=== PATIENT | female | born 1945 | race Caucasian/White ===

== ENCOUNTER 2018-12-24 07:01 | Inpatient (IN) ==
[2018-12-24] MEDS ORDERED: ZOFRAN IV ONE (07:24)
[2018-12-24] MEDS ORDERED: MORPHINE IV ONE (07:24)
[2018-12-24] MEDS ORDERED: NS 1,000 ML IV ONE ×2 (07:24→11:11)
--- NOTE | 2018-12-24 07:32 | PROVIDER DOCUMENTATION ---
HPI-Abdominal Pain/GI Problem - General Chief Complaint: Abdominal Pain Stated Complaint: "BOWEL BLOCKAGE" Time Seen by Provider: 12/24/18 07:17 Source: patient (began with severe, crampy diffuse abd pain, N/V about midnight. Nothing makes better nor worse. Says is similar to prev SBO. Last one was in Mar. Sees Dr Naranjo, has been told is due to scar tissue. Says she does have NL BM, is us just diarrhea, but has been clearer, less solids last few days.) Allergies/Adverse Reactions: Patient Allergies Allergy/AdvReac Type Severity Reaction Status Date / Time aspirin Allergy SHORTNESS Verified 12/24/18 07:42 OF BREATH hydrocodone Allergy HIVES Verified 12/24/18 07:42 Iodinated Contrast Media Allergy ANAPHYLAXIS Verified 12/24/18 07:42 [IV Dye] ketorolac tromethamine * Allergy HIVES Verified 12/24/18 07:42 [From Toradol] methocarbamol [From Robaxin] Allergy SHORTNESS Verified 12/24/18 07:42 OF BREATH oxycodone HCl * Allergy HIVES Verified 12/24/18 07:42 [From Percocet] promethazine [From Phenergan] Allergy Unknown Verified 12/24/18 07:42 Home Medications: Home Medication List Medication Instructions Recorded Confirmed Last Taken Type LISINOpril [Prinivil] 20 mg PO BID 06/14/16 12/24/18 06/14/16 05:30 History Levothyroxine [Synthroid] 75 mg PO DAILY@0700 06/14/16 12/24/18 06/14/16 05:30 History Metoprolol Tartrate 50 mg PO BID 06/14/16 12/24/18 06/14/16 05:30 History Amlodipine [Norvasc] 2.5 mg PO DAILY 03/06/18 12/24/18 Unknown History Furosemide [Lasix] 40 mg PO DAILY 03/06/18 12/24/18 Unknown History Potassium Chloride 10 meq PO DAILY 03/06/18 12/24/18 Unknown History Tramadol [Ultram] 50 mg PO BID 04/15/18 12/24/18 Unknown History Esomeprazole [Nexium] 40 mg PO DAILY 12/24/18 12/24/18 Unknown History Review of Systems - Adult - REVIEW OF SYSTEMS - ADULT Constitutional: reports: no symptoms reported Eyes: reports: no symptoms reported Ears, Nose, Mouth & Throat: reports: no symptoms reported Cardiovascular: reports: no symptoms reported Respiratory: reports: no symptoms reported Gastrointestinal: reports: see HPI Genitourinary: reports: no symptoms reported Musculoskeletal: reports: no symptoms reported Integumentary: reports: no symptoms reported Neurological: reports: no symptoms reported Psychiatric: reports: no symptoms reported Endocrine: reports: no symptoms reported Hematologic/Lymphatic: reports: no symptoms reported Allergic/Immunologic: reports: no symptoms reported Past History - Adult - PAST MEDICAL HISTORY-ADULT Review of Records: reports: Medications Reviewed Major Childhood Illnesses: reports: denies history Cardiovascular: reports: HTN Respiratory: reports: denies history Gastrointestinal: reports: diverticulosis, GERD, obstruction Obstetrical/Gynecological: reports: denies history Genitourinary: reports: denies history Musculoskeletal: reports: fibromyalgia Neurological: reports: denies history Endocrine/Immune: reports: thyroid disorder Other Conditions: reports: other cancer (skin) - PRIOR SURGERIES/PROCEDURES Surgical/Procedure History: reports: cholecystectomy, hysterectomy, hernia repair, breast (reduction) - IMMUNIZATION STATUS Childhood Immunizations: See Nurse Assessment Flu Vaccine: See Nurse Assessment - FAMILY HISTORY Family History: reviewed, not pertinent Physical Exam-General - PHYSICAL EXAM-ADULT Initial Vital Signs Reviewed: Yes - CONSTITUTIONAL General Appearance: appears well, alert, moderate distress - EYES Eyes: PERRL/EOMI, pink conjunctivae - HEAD, EARS, NOSE, MOUTH & THROAT HENMT: normocephalic/atraumatic, moist mucous membranes, normal ENT inspection, pharynx normal - NECK Neck: full range of motion, supple, normal inspection - RESPIRATORY Respiratory: chest non-tender, lungs clear, normal breath sounds, no pleuratic chest pain, no respiratory distress, decreased breath sounds - CARDIOVASCULAR Cardiovascular: normal peripheral pulses, regular rate, rhythm, no edema - GASTROINTESTINAL (ABDOMEN) Abdominal Exam: abnormal bowel sounds (decreased), distended (mod), tenderness (diffuse, moderate) - MUSCULOSKELETAL Back Exam: normal inspection, no CVA tenderness, no vertebral tenderness Extremity: normal range of motion, non-tender, normal inspection, no pedal edema - SKIN Integumentary: normal color, normal turgor, warm/dry - NEUROLOGIC Neurologic: imcu nurse II-XII nml as tested, grossly normal, no motor/sensory deficits - PSYCHIATRIC Psych/Mental Status: normal mood/affect, normal thought content, normal thought process, oriented x 3 Progress - PLAN OF CARE/RESULTS Progress/Plan/Lab Results: Vital Signs - 8 hr 12/24/18 07:05 Temperature 97.3 F L Pulse Rate 97 H Respiratory Rate 18 Blood Pressure 122/85 O2 Sat by Pulse Oximetry 99 Orders Category Date Time Status NG/OG/Feeding Tube Insertion ORDERED Care 12/24/18 07:25 Ordered CBC WITH DIFF [HEME] Stat Lab 12/24/18 07:24 Uncollected COMPREHENSIVE METABOLIC PANEL [CHEM] Stat Lab 12/24/18 07:24 Uncollected 0.9% Sodium Chloride Inj [Ns] 1,000 ml Med 12/24/18 07:24 Ordered IV 200 mls/hr Morphine Med 12/24/18 07:24 Once 4 mg IV NOW ONE Ondansetron [Zofran] Med 12/24/18 07:24 Once 8 mg IV NOW ONE Result Diagrams: 12/24/18 07:20 12/24/18 07:20 - CONSULTS/PCP/HOSPITALIST Notification #1 *Consult/PCP/Hospitalist*: Zaldivar Time Discussed: 09:15 Consult Disposition: Admit #2 Consult: Figh Time Discussed: 07:30 Reason/Comments: please get CT Departure - Departure Date of Disposition Decision: 12/24/18 Time of Disposition Decision: 09:15 DIAGNOSIS: Small bowel obstruction Disposition: ADMITTED INPATIENT 09 Certified Medical Emergency: Emergent Condition: Stable Referrals and Follow-Ups: Paola Omalley CRNP [Primary Care Provider] - - Critical Care Note This patient required my direct & personal management of CC.: No Attestation - Physician/ KEITH Attestation Patient care was provided by Advanced Practice Provider:: No The physician spent face to face time with patient:: Yes Advanced Practice Provider documentation review:: Supervising physician onsite and consulted in the evaluation and care of this patient. The physician did have a face to face encounter with the patient.
[2018-12-24] MEDS ORDERED: VALIUM IV ONE ×2 (08:02→09:13)
[2018-12-24 08:12] LABS: BASO# 0.04 X1000 (0.0-0.2); BASO% 0.2 % (0.0-0.8); EOS# 0.11 X1000 (0.0-0.7); EOS% 0.5 % (0.0-10.0); HEMATOCRIT 47.3 % (37.0-47.0); HEMOGLOBIN 16.3 g/dL (12.0-16.0); IMM GRAN# 0.08 X1000 (0.0-0.04); IMM GRAN% 0.4 % (0.0-0.5); LYMPH# 1.85 X1000 (1.2-3.4); LYMPH% 8.8 % (20.5-51.1); MCH 28.6 PG (27-31); MCHC 34.5 g/dL (33-37); MONO# 1.49 X1000 (0.11-0.59); MONO% 7.1 % (1.7-9.3); MPV 9.9 FL (7.4-10.4); NEUT# 17.37 X1000 (1.4-6.5); PLT 492 X1000 (130-400); RDW 14.8 % (11.5-14.5); WBC 20.94 X1000 (4.8-10.8)
[2018-12-24 08:24] LABS: BANDS 10 % (0-1); LYMPHS 4 % (21-51); MONO 4 % (1-9); SEGS 82 % (42-75)
[2018-12-24 08:42] LABS: ALB/GLOB RATIO 1.3; ALBUMIN 5.5 g/dL (3.5-5.0); CREATININE 1.7 mg/dL (0.5-0.9); POTASSIUM 3.6 mmol/L (3.5-5.1); TOTAL BILIRUBIN 0.63 mg/dL (0.20-1.00); TOTAL PROTEIN 9.7 g/dL (6.3-8.3)
--- NOTE | 2018-12-24 10:49 | Diag Imaging Result Doc PS360 ---
EXAM: CT ABDOMEN/PELVIS W/O CONTRAST INDICATION: abd pain, and GFR too low TECHNIQUE: This exam was performed using automated exposure control, adjustment of mA or kV according to patient size, and/or use of iterative reconstruction technique. COMPARISON: 10/22/2018 FINDINGS: There has been a prior cholecystectomy. The liver, spleen, pancreas, adrenal glands, and kidneys are unremarkable. The urinary bladder is completely nondistended. There has been a prior hysterectomy. There are stable bilateral small inguinal hernias containing only fat. There is uncomplicated diverticulosis coli. There are multiple markedly distended loops of small bowel that are fluid-filled. There are also several air-fluid levels. The distal small bowel is collapsed. This is consistent with a high-grade small bowel obstruction. The transition point is probably in the right lower quadrant anteriorly (see image 124 series 3). The stomach is moderately distended. There is an NG tube with the tip in the lumen of the stomach in the expected position. No free abdominal gas is identified. There is surgical mesh and coils at the ventral abdominal wall suggesting prior hernia repair. There is no evidence of acute osseous abnormality. IMPRESSION: 1.High-grade small bowel obstruction as described. 2.Other incidental/nonacute findings detailed above. Electronically signed by Sukhwinder Reddy 12/24/2018 10:47 AM
[2018-12-24] MEDS ORDERED: ZOFRAN IV PRN (11:11)
[2018-12-24] MEDS ORDERED: ROCEPHIN 1 GM in NS 50 ML IV SCH (12:00)
--- NOTE | 2018-12-24 12:56 | HISTORY AND PHYSICAL ---
PRIMARY CARE PROVIDER: KEVYN Woods. CHIEF COMPLAINT: Small-bowel obstruction. HISTORY OF PRESENT ILLNESS: Ms. Isbell is a 73-year-old female who has had recurrent admissions for small-bowel obstructions, I believe 3 total this year. She is followed closely by Dr. Naranjo for this. It is secondary to some mesh that she had some years ago at [facility]. Others, hypothyroidism, hypertension, fibromyalgia. She reports she had just seen her primary care provider and was placed on antibiotics, I believe secondary to blood in the urine, as well as a possible urinary tract infection. She came to the ED after having some nausea and vomiting since 3 a.m., as well as pain and bloating. Her last meal was at 5 p.m. yesterday. However, states she has been nauseous now for several days. She came to the ED to be evaluated. They immediately placed an NG tube, and they had 1200 mL out when they inserted the NG tube. Since that time, she has had an additional 650 out of her NG tube. Her abdominal CT scan shows high-grade small-bowel obstruction and uncomplicated diverticulosis coli, as well as an elevated white count of 20, and acute kidney injury with a creatinine of 1.7. We will continue with her NG tube. Initiate IV fluids, antiemetics, and pain medication. Will prophylactically start Rocephin, and check a urinalysis. PAST MEDICAL HISTORY: 1. Diverticulitis. 2. Fibromyalgia. 3. Hypothyroidism. 4. GERD. 5. Hypertension. 6. Previous small-bowel obstructions. PAST SURGICAL HISTORY: 1. Cholecystectomy. 2. Hysterectomy. 3. Hernia repair with mesh. 4. Breast reduction. FAMILY HISTORY: Noncontributory. SOCIAL HISTORY: She lives with family. She smokes a pack of cigarettes a day. Drinks alcohol 2 times a week. No illicit drug use. ALLERGIES: Aspirin, hydrocodone, IV contrast, Toradol, Robaxin, Percocet, promethazine. HOME MEDICATIONS: 1. Norvasc 2.5 mg p.o. daily. 2. Nexium 40 mg p.o. daily. 3. Lasix 40 mg p.o. daily. 4. Synthroid 75 mcg p.o. daily. 5. Prinivil 20 mg p.o. b.i.d. 6. Metoprolol 50 mg p.o. b.i.d. 7. Potassium 10 mEq p.o. daily. 8. Ultram 50 mg p.o. b.i.d. PHYSICAL EXAMINATION: VITAL SIGNS: Temperature was 97.3 degrees, heart rate 93, respirations 18, blood pressure 120/57, O2 is 99% on room air. GENERAL: Ms. Isbell is a pleasant, 73-year-old, female, who is in her room, sitting up on the side of the bed. NG tube in place, draining yellowish liquid. No acute distress. HEENT: Atraumatic, normocephalic. PERRL. NECK: Supple. Trachea midline. CARDIOVASCULAR: S1, S2 appreciated. No murmurs, gallops, rubs noted. RESPIRATORY: Lung sounds clear bilaterally. GASTROINTESTINAL: Somewhat distended and tender in all 4 quadrants. Hypoactive bowel sounds. LOWER EXTREMITIES: Negative for edema. NEUROLOGIC: No focal deficits noted. DIAGNOSTIC DATA: Abdomen and pelvis CT shows high-grade small-bowel obstruction. LABORATORY DATA: White count 20, hemoglobin and hematocrit 16 and 47, platelet count is 492,000. Sodium 133, potassium 3.6, BUN 16, creatinine 1.7, blood glucose is 253, alkaline phosphatase 144, calcium is 11. ASSESSMENT AND PLAN: 1. High-grade small-bowel obstruction. She is feeling better after placement of nasogastric tube, antiemetics, and pain medication. We have consulted Dr. Menendez as well as Gastroenterology. Will continue with nothing by mouth status and intravenous fluids. 2. Probable recent urinary tract infection. The patient was recently started on Macrobid. She does have an elevated white count. We will check urinalysis, and initiate a dose of Rocephin. She also reported blood in her urine, as well as feces as reported as per last doctor visit. 3. Diverticulitis history. There is no evidence of diverticulitis at this time. 4. Fibromyalgia. 5. Hypothyroidism. 6. Gastroesophageal reflux disease. 7. Hypertension. 8. Mild hyponatremia. Will continue with intravenous fluids. 9. Acute kidney injury. Continue with intravenous fluids. 10. Hypercalcemia. Will continue with intravenous fluids, and recheck all morning labs. Further recommendations to follow physician evaluation, laboratory and diagnostic data. Dictated by KEVYN Castaneda for Clemente Garcia MD cc: MD Paola Norman CRNP
--- NOTE | 2018-12-24 13:15 | GENERAL SURGERY CONSULTATION ---
DATE: 12/24/2018 REQUESTING PHYSICIAN: Hospitalist. REASON FOR CONSULTATION: Small-bowel obstruction. HISTORY OF PRESENT ILLNESS: A 73-year-old female with a history of multiple bowel obstructions, presenting now with another episode of severe cramping abdominal pain with nausea and vomiting. She says this is very similar previous small-bowel obstructions. She is seen in the emergency department, and had a CT scan that confirmed, and had an NG tube. She is feeling a little bit better since the NG tube was placed. I was asked to weigh an opinion. PAST MEDICAL HISTORY: Includes fibromyalgia, hypothyroidism, gastroesophageal reflux disease, chronic diarrhea, hypertension, history of small-bowel obstructions. PAST SURGICAL HISTORY: Includes cholecystectomy, hysterectomy, hernia repair, breast reduction. FAMILY HISTORY: Reviewed with the patient and noncontributory. SOCIAL HISTORY: Current smoker. Reports social alcohol intake. ALLERGIES: Aspirin, hydrocodone, contrast, Robaxin, Toradol, Phenergan. HOME MEDICATIONS: Include lisinopril, Synthroid, metoprolol, Norvasc, Lasix, potassium, tramadol, Nexium. REVIEW OF SYSTEMS: A full 14-systems were reviewed and negative, except as specified in the HPI. PHYSICAL EXAMINATION: Vital Signs: The patient is currently afebrile. Her vital signs are stable. General: No acute distress. female. Looks stated age. HEENT: Normocephalic, atraumatic. Pupils equal, round, reactive to light. Mucous membranes moist. Oropharynx benign. Neck: Supple. Trachea midline. Cardiovascular: Regular rate and rhythm. Lungs: Grossly clear. Abdomen: Soft. Some distention. No peritoneal signs. Extremities: Moves all extremities. Neurologic: Grossly intact. Skin: No signs of jaundice. Vascular: All extremities perfused. IMAGING AND LABORATORY DATA: White blood cell count is 20, hematocrit 47, platelet count 492,000. Sodium is 133, creatinine is 1.7, calcium is 1.0, albumin is 5.5. CT scan independently reviewed, and radiology report reviewed. ASSESSMENT AND PLAN: A 73-year-old with recurrent small-bowel obstruction. 1. Recurrent small-bowel obstruction. At this time, will keep nasogastric tube in place. The patient has seen Dr. Naranjo, and is requesting to see him again. She likely will require surgical intervention given the fact that she has had several bowel obstructions in the recent past. It is likely related to scar tissue. In the meantime, will continue to resuscitate her. She looks dehydrated by labs, and hemoconcentrated, so she will likely need intravenous fluids for resuscitation, but will continue to monitor. She has been admitted by the Hospitalist Service. 2. Multiple medical comorbidities, currently being managed by the Hospitalist Service. cc: Roel Menendez MD
[2018-12-24] MEDS: MORPHINE IV PRN ×2 (14:13→18:30)
[2018-12-24 14:30] LABS: URINE SOURCE CLEAN CATCH
[2018-12-24 14:35] LABS: UR EPITHELIAL CELLS >10 /HPF (<10); URINE BACTERIA 1+ /HPF; URINE WBC <10 /HPF (<10)
[2018-12-24 14:44] LABS: BILIRUBIN URINE SMALL (NEGATIVE); BLOOD URINE TRACE (NEGATIVE); COLOR YELLOW; GLUCOSE URINE TRACE mg/dL (NEGATIVE); KETONE URINE TRACE mg/dL (NEGATIVE); LEUKOCYTES URINE TRACE (NEGATIVE); NITRITE URINE NEGATIVE (NEGATIVE); PROTEIN URINE 100 mg/dL (NEGATIVE); SP GRAVITY URINE 1.026; TURBIDITY URINE TURBID (CLEAR); UROBILINOGEN URINE 2 mg/dL (NORMAL)
--- NOTE | 2018-12-24 17:51 | HISTORY AND PHYSICAL ---
HISTORY AND PHYSICAL ADDENDUM: This is a 73-year-old female who has had several episodes of small- bowel obstruction. She says more than 5 in the last day. She came in for evaluation and was found to have high-grade small-bowel obstruction and was admitted for treatment. PHYSICAL EXAMINATION: Her abdomen is distended. Bowel sounds are diminished. LABORATORY DATA: Her white count is 20.9. She is dehydrated. Hemoglobin and hematocrit 16 and 47. Creatinine of 1.7. ASSESSMENT AND PLAN: We will admit her for fluids and pain control. Serial abdominal exams. Surgery has been consulted, and there is a fairly strong concern over possible need for surgery. She has been placed on Rocephin, but I am going to expand it to Zosyn just because of her high white count and concern over developing infection. cc: Clemente Garcia MD
[2018-12-24] MEDS: ZOSYN 3.375 GM in NS 50 ML IV SCH ×2 (19:06→23:28)
[2018-12-25] MEDS: ZOSYN 3.375 GM in NS 50 ML IV SCH ×2 (04:40→12:10)
[2018-12-25 06:32] LABS: CALCIUM 8.6 mg/dL (8.8-10.2); MAGNESIUM 1.7 mg/dL (1.5-2.7); POTASSIUM 3.2 mmol/L (3.5-5.1)
[2018-12-25 07:19] LABS: BASO# 0.02 X1000 (0.0-0.2); BASO% 0.2 % (0.0-0.8); EOS# 0.24 X1000 (0.0-0.7); HEMATOCRIT 36.8 % (37.0-47.0); HEMOGLOBIN 12.3 g/dL (12.0-16.0); IMM GRAN# 0.03 X1000 (0.0-0.04); IMM GRAN% 0.4 % (0.0-0.5); LYMPH# 1.51 X1000 (1.2-3.4); LYMPH% 18.6 % (20.5-51.1); MCHC 33.4 g/dL (33-37); MCV 86.8 FL (81-99); MONO# 0.68 X1000 (0.11-0.59); MONO% 8.4 % (1.7-9.3); MPV 9.7 FL (7.4-10.4); NEUT# 5.65 X1000 (1.4-6.5); NEUT% 69.4 % (42.2-75.2); PLT 261 X1000 (130-400); RBC 4.24 XMIL (4.2-5.4); RDW 14.5 % (11.5-14.5); WBC 8.13 X1000 (4.8-10.8)
--- NOTE | 2018-12-25 09:02 | Diag Imaging Result Doc PS360 ---
EXAM: FLAT/UPRIGHT ABD/1 VIEW CHEST 12/25/2018 HISTORY: Recurrent small bowel obstruction. TECHNIQUE: Flat and upright abdomen with PA chest COMMENT: There is an NG tube which passes below the diaphragm. There is colonic gas. There is no evidence of small bowel or gastric distention and no evidence organomegaly or mass is present. There is a mesh over the pelvis. Compared to 08/06/2018 there is somewhat less small bowel gas but otherwise are has been no appreciable change. The appearance of the chest has not changed appreciably. IMPRESSION: Nonspecific abdomen. Electronically signed by Jcarlos Anand 12/25/2018 8:59 AM
[2018-12-25] MEDS: POTASSIUM CHLORIDE 20 MEQ/SWI 20 MEQ/100 ML IVPB IV SCH ×2 (09:51→12:09)
[2018-12-25] MEDS: D5 1/2 NS + KCL 20 MEQ 1,000 ML IV SCH (10:00)
[2018-12-25] MEDS ORDERED: DIPRIVAN 1% ONE (12:19)
--- NOTE | 2018-12-25 12:33 | PROGRESS NOTE ---
DATE: 12/25/2018 Ms. Merary Isbell was last evaluated by me while she was in the hospital in March 2018 for a small bowel obstruction which resolved with NG suction. She has had multiple hospitalizations with recurrent small bowel obstructions. She states that almost on a weekly basis she will have cramping and symptoms of her abdomen and wants to stop having these recurrent episodes. We discussed treatment options. Her flat and upright abdominal film is improved today with some air in her colon. Her abdomen is less distended with NG tube suction. There is still a dilated loop of bowel, right side of abdomen, similar to other x-ray studies. She has had multiple abdominal surgeries, including mesh implantation for ventral hernia repair. She has also had an open cholecystectomy, right upper quadrant abdomen. She has also been treated for diverticulitis. We discussed treatment options, including removing her NG tube and advancing her diet versus exploratory laparotomy for recurrent small bowel obstructions. She feels that this is affecting her life, it prevents her from traveling, and has much more frequent symptoms than we see with her hospitalizations, and we have decided on exploratory laparotomy with indicated procedures. I have discussed it in detail with the patient and her family at the bedside this morning, and they want to proceed. cc: Daphne Naranjo MD
[2018-12-25] MEDS ORDERED: MARCAINE 0.5% PF ONE (12:56)
[2018-12-25 14:17] LABS: URINE SOURCE CATH
[2018-12-25 14:18] LABS: BILIRUBIN URINE NEGATIVE (NEGATIVE); BLOOD URINE NEGATIVE (NEGATIVE); COLOR ORANGE; GLUCOSE URINE NEGATIVE (NEGATIVE); KETONE URINE NEGATIVE (NEGATIVE); LEUKOCYTES URINE NEGATIVE (NEGATIVE); NITRITE URINE NEGATIVE (NEGATIVE); PH URINE 5.5; PROTEIN URINE TRACE mg/dL (NEGATIVE); TURBIDITY URINE TURBID (CLEAR); UROBILINOGEN URINE NORMAL (NORMAL)
[2018-12-25 14:23] LABS: UR EPITHELIAL CELLS <10 /HPF (<10); URINE BACTERIA NEGATIVE /HPF; URINE RBC <10 /HPF (<10); URINE WBC <10 /HPF (<10)
[2018-12-25] MEDS ORDERED: D5 1/2 NS + KCL 40 MEQ 1,000 ML IV SCH (15:00)
[2018-12-25] MEDS ORDERED: ROBINUL ONE (15:19)
[2018-12-25] MEDS ORDERED: NEOSTIGMINE ONE (15:19)
[2018-12-25] MEDS ORDERED: DECADRON ONE (15:19)
[2018-12-25] MEDS ORDERED: QUELICIN (DOSE) ONE (15:19)
[2018-12-25] MEDS ORDERED: XYLOCAINE-MPF 2% ONE (15:19)
[2018-12-25] MEDS ORDERED: ZEMURON ONE (15:19)
[2018-12-25] MEDS ORDERED: ZOFRAN ONE (15:19)
--- NOTE | 2018-12-25 15:20 | PROGRESS NOTE ---
DATE: 12/25/2018 SUBJECTIVE: Patient has no major complaints except abdominal pain. OBJECTIVE: Vital signs: Blood pressure 139/89, heart rate 75, respiratory rate 18, temperature 97.8 degrees. Cardiovascular: Regular rate and rhythm. Pulmonary: Bilateral breath sounds. Clear to auscultation. GI: Soft, nontender. She is distended but a little bit improved. LABORATORY DATA: White count is down to 8 from 20, hemoglobin and hematocrit are 12 and 36 from 16 and 47, platelets 261,000. Potassium 3.2. PROBLEM LIST: 1. Severe small bowel obstruction with recurrence. Surgery has been consulted which I think Dr. Naranjo has decided he was going to take her for an exploratory laparotomy. So the plan is today for an exploratory laparoscopy with lysis of adhesions. We will continue supportive care. 2. Hypokalemia. We will supplement potassium and follow. I am just going to bump up the potassium in her fluids. Check magnesium level. 3. Hypertension. We will have to use p.r.n. medications at this point since she is having surgery. We will continue to follow. DISPOSITION: Pending her clinical status. cc: Clemente Garcia MD
[2018-12-25] MEDS: MORPHINE ONE ×3 (16:05→16:56)
[2018-12-25] MEDS ORDERED: OFIRMEV 1000 MG/ISOTONIC SOLN 1,000 MG/100 ML BOTTLE ONE (16:13)
[2018-12-25] MEDS ORDERED: D5 1/2 NS + KCL 20 MEQ 1,000 ML ONE (16:16)
[2018-12-25] MEDS ORDERED: ZOFRAN IV PRN (16:24)
[2018-12-25] MEDS: OFIRMEV 1000 MG/ISOTONIC SOLN 1,000 MG/100 ML BOTTLE IV SCH ×2 (16:30→22:45)
--- NOTE | 2018-12-25 16:31 | Diag Imaging Result Doc PS360 ---
CHEST-PORTABLE - 12/25/2018 4:16 PM INDICATION: central line insertion COMPARISON: 8:51 AM FINDINGS: There is been placement of a right subclavian central line. The catheter tip is in the lower SVC. Stable nasogastric tube in good position. The lungs are clear and the heart size is normal. IMPRESSION: Good right central line placement. Electronically signed by Darryl Yip 12/25/2018 4:29 PM
--- NOTE | 2018-12-25 16:38 | OPERATIVE NOTE ---
PROCEDURE DATE: 12/25/2018 PREOPERATIVE DIAGNOSIS: Recurrent small-bowel obstruction. POSTOPERATIVE DIAGNOSIS: Recurrent small bowel obstruction. PRINCIPAL PROCEDURES: 1. Right subclavian central venous line. 2. Exploratory laparotomy with extensive lysis of adhesions lasting at least 2 hours. 3. Resection of small bowel. SURGEON: Daphne Naranjo MD. AGRICULTURAL EDUCATION INSTRUCTOR: Angélica plating technician. ANESTHESIA: General. ESTIMATED BLOOD LOSS: 150 mL. DRAINS: None. INDICATIONS: Ms. Merary Isbell is a 73-year-old white female patient of Dr. Zaldivar who has recurrent episodes of small-bowel obstruction. She was last hospitalized in March around [place] of 2018. She was treated conservatively and discharged, but when speaking with her on a weekly basis, she has abdominal cramping and abdominal distention with obstipation, nausea and some vomiting. She has had multiple abdominal procedures including intra-abdominal mesh for a midline hernia. She was admitted over the holiday weekend again with a small bowel obstruction by CT scan, and history and exam. It was felt that we needed to explore her abdomen because of these recurrent symptoms of recurrent small-bowel obstruction. FINDINGS: She had a large piece of intra-abdominal mesh which covered most of her abdominal midline. She had extensive scarring along this mesh. It was intra-abdominal. The omentum was tightly adhered to the mesh as were several loops of small bowel and at the superior part of it even her transverse colon. We had to remove one loop of small bowel with a small bit of mesh attached to it because it was intimately scarred to the mesh. We also had to resect some of the omentum that was attached to the mesh. She had an area of small bowel which appeared to be the area of obstruction. Proximal to this area, the small bowel was dilated and thickened. Distally, the small bowel appeared to be normal. It was probably in her proximal ilium. I ended up resecting this segment because it had a chronic stricture from this intermittent obstruction. I performed an end-to-end double-layer sewn anastomosis after resection of this stricture. This was just a small length of small bowel that was resected. We felt we had found the problem with this piece of small bowel, and part of the recurrent obstruction was related to scarring to the mesh. We dissected the entire length of small bowel. We ran the small bowel and made sure that there were no other areas of concern. All adhesions were lysed between loops of small bowel. All the small bowel was taken off the mesh, and the anterior abdominal wall. We did not have any injuries that we noted. We did resect this piece of bowel and sewed the bowel in an end-to-end fashion. The mesh was secured to the anterior abdominal wall with nonabsorbable tacks, and some of these tacks did cause the scarring. We made sure that the bowel was placed in the anatomically correct position. We left the omentum tightly adhered to the left side of the mesh. We removed the omentum off the right side of the mesh from the midline. We reapproximated the mesh with Prolene. We placed a central line at the end of the procedure. DESCRIPTION OF PROCEDURE: The patient was brought to the operating room, placed supine, received general anesthesia, and was intubated. Her abdomen was prepped and draped in a sterile field. She had an upper midline incision from placement of mesh, and she had a right upper quadrant gallbladder incision. We began by making an incision in the lower midline of the abdomen but the mesh extended down almost to her pubis on the left side. We carefully entered the abdomen below the mesh lower midline incision, and it became clear that our incision had to come around the umbilicus into the superior midline of the abdomen. The incision was made with a 10 blade scalpel. We carried the incision down through the subcutaneous tissue to the mesh itself with cautery. We had carefully divided the mesh from the inferior to superior as we made sure that there was no bowel attached to the underside of the mesh. Once we had the abdomen completely opened, through this midline and by transecting the midline mesh, we began taking down adhesions. We used Michelle clamps on the mesh or the fascia, and we had to even use a 10 blade scalpel to take down loops of small bowel adhered to the mesh and to the non absorbable tacks because they were so tightly adhered. We used this 10 blade scalpel to take them down. We had to remove the piece of mesh with the small bowel, and left it on the small bowel anti mesenteric side. It was just a small segment, but that is how tightly it was attach to the mesh. Once we had taken down all the adhesions to the anterior abdominal wall, we ran the bowel and made sure that all interloop adhesions were taken down using the cautery and forceps and scissors. We could run the bowel from the distal ileum to the duodenum. There was this area of stricture where we felt that the chronic obstruction was related to the mesh. We resected a small segment of bowel with that stricture. I used a MAGALY stapler on either side of the stricture to transect the small bowel. I used the LigaSure to come through the small bowel mesentery, and I performed an end-to-end double-layer sewn anastomosis between the 2 cut ends of the small bowel. The posterior layer was with interrupted 3-0 silk stitches which were reinforced with a double-arm 3-0 Vicryl stitch, which was a locking stitch which was carried onto the anterior wall of our anastomosis as a canal stitch. Then, we reinforced the anterior wall of our anastomosis with 3-0 silk Lembert stitches. We were happy with our end-to-end anastomosis. There was good blood supply to this anastomosis with no tension. We made sure to place the bowel back in the anatomically correct position. There was some bowel that was not covered with omentum that was up against the mesh, but the mesh was peritonealized. We closed the inferior aspect of our incision with a #1 Maxon where there was no mesh. This was the most inferior part of the incision. We closed the cut end of the mesh with a #2 Prolene stitch. We irrigated the subcutaneous tissue and we closed the skin with a skin clip sieve grader tender. Dressings were applied. I then directed my attention to placement of a right subclavian central venous line. This area of the shoulder, anterior chest, and neck were prepped and draped in a sterile field. I used an 18- gauge needle to access the right subclavian vein on the . A guidewire was placed through the needle into the right side of the heart. The needle was removed. The dilator was placed over the guidewire, and then I placed a triple-lumen antibiotic coated central venous line over the guidewire into the superior vena cava. I secured the central venous line to the skin with two 3-0 silk stitches. Dressings were applied. She tolerated both of these procedures well. We left the NG tube in place. She also has a Lazcano catheter tube in place. Plans are for her to go to the recovery room and then return to the floor. I spoke with her family after the procedure. cc: Daphne Naranjo MD
[2018-12-25] MEDS ORDERED: APRESOLINE ONE (17:03)
[2018-12-25] MEDS: MORPHINE IV PRN (20:00)
[2018-12-25] MEDS: PERIDEX MT SCH (20:00)
[2018-12-26] MEDS: MORPHINE IV PRN ×4 (00:11→22:01)
[2018-12-26 06:02] LABS: BASO# 0.01 X1000 (0.0-0.2); BASO% 0.1 % (0.0-0.8); EOS# 0.01 X1000 (0.0-0.7); EOS% 0.1 % (0.0-10.0); HEMATOCRIT 37.4 % (37.0-47.0); HEMOGLOBIN 12.3 g/dL (12.0-16.0); IMM GRAN# 0.04 X1000 (0.0-0.04); IMM GRAN% 0.3 % (0.0-0.5); LYMPH% 13.1 % (20.5-51.1); MCH 28.9 PG (27-31); MCHC 32.9 g/dL (33-37); MCV 87.8 FL (81-99); MONO# 1.21 X1000 (0.11-0.59); MONO% 10.6 % (1.7-9.3); MPV 9.7 FL (7.4-10.4); NEUT# 8.66 X1000 (1.4-6.5); NEUT% 75.8 % (42.2-75.2); PLT 253 X1000 (130-400); RBC 4.26 XMIL (4.2-5.4); RDW 14.6 % (11.5-14.5); WBC 11.43 X1000 (4.8-10.8)
[2018-12-26] MEDS: OFIRMEV 1000 MG/ISOTONIC SOLN 1,000 MG/100 ML BOTTLE IV SCH ×5 (06:11→22:01)
[2018-12-26] MEDS: LOVENOX SUBQ SCH (06:11)
[2018-12-26] MEDS: D5 1/2 NS + KCL 20 MEQ 1,000 ML IV SCH ×3 (06:26→18:13)
[2018-12-26] MEDS: PERIDEX MT SCH ×2 (06:38→11:17)
[2018-12-26 06:48] LABS: AGAP 9; BUN 12 mg/dL (8-22); CHLORIDE 106 mmol/L (98-107); COSMO 283; CREATININE 0.9 mg/dL (0.5-0.9); ESTIMATED GFR > 60; GLUCOSE 133 mg/dL (70-104); POTASSIUM 3.8 mmol/L (3.5-5.1); SODIUM 141 mmol/L (136-145); TCO2 26 mmol/L (25-35)
[2018-12-26 06:49] LABS: CALCIUM 8.1 mg/dL (8.8-10.2); MAGNESIUM 1.6 mg/dL (1.5-2.7)
--- NOTE | 2018-12-26 07:41 | PROGRESS NOTE ---
DATE: 12/26/2018 Ms. Merary Isbell is now postop day 1 from exploratory laparotomy with small-bowel resection for recurrent small-bowel obstruction. She required extensive lysis of adhesions. She did have intra- abdominal mesh. This morning her heart rate is 77, blood pressure 133/61, and O2 saturation 97%. She is afebrile. She is resting satisfactorily. She has no work of breathing. She has a Lazcano catheter tube in place. Also, she has an NG tube in place. Her BUN and creatinine are 12 and 0.9. Her hematocrit is stable at 37%. Her white blood cell count 11.43. She has begun on Lovenox. We can remove her intermittent compression hose. We will leave her Lazcano and NG tube for now. She will remain NPO. She is on IV fluids. We stopped her antibiotics. We will try to have her sitting on the side of bed or in a chair today. cc: Daphne Naranjo MD
[2018-12-26] MEDS ORDERED: LOPRESSOR IV PRN (16:13)
--- NOTE | 2018-12-26 17:31 | PROGRESS NOTE ---
DATE: 12/26/2018 SUBJECTIVE: Patient has no major complaints. OBJECTIVE: Vital signs: Blood pressure is 141/58, heart rate 77, respiratory rate of 16, temperature 97.8 degrees, 96% on room air. Cardiovascular: Regular rate and rhythm. Pulmonary: Bilateral breath sounds. Clear to auscultation. GI: Soft, nontender, nondistended. Bowel sounds are diminished, not present. LABORATORY DATA: Normal white count. PROBLEM LIST: Small bowel obstruction with extensive lysis of adhesion and a resection of the small bowel. She has an NG in place. Output though is diminished. So, patient is being followed closely by surgery. This is primarily a surgical issue at this point. We will continue supportive therapy. Agree with DVT prophylaxis. We will follow along with the patient. May institute some Nexium just because she has hx GERD, she has had that in the past, and also she may need Lopressor as needed because she is on that as an outpatient. DISPOSITION: Will really be primarily per surgery once she is tolerating p.o. and is able to get up and around. Hopefully, that will be in the next several days. cc: Clemente Garcia MD MTDD
[2018-12-26] MEDS: NEXIUM IV SCH (18:11)
[2018-12-26] MEDS: SODIUM CHLORIDE 0.9% INJ SCH (18:11)
[2018-12-27] MEDS: OFIRMEV 1000 MG/ISOTONIC SOLN 1,000 MG/100 ML BOTTLE IV SCH ×3 (05:27→17:41)
[2018-12-27] MEDS: MORPHINE IV PRN ×2 (05:27→12:30)
[2018-12-27] MEDS: LOVENOX SUBQ SCH (05:28)
[2018-12-27] MEDS: D5 1/2 NS + KCL 20 MEQ 1,000 ML IV SCH ×2 (05:28→12:19)
[2018-12-27 06:36] LABS: HEMATOCRIT 33.8 % (37.0-47.0); HEMOGLOBIN 11.1 g/dL (12.0-16.0); MCH 29.4 PG (27-31); MCHC 32.8 g/dL (33-37); MCV 89.7 FL (81-99); MPV 9.6 FL (7.4-10.4); RBC 3.77 XMIL (4.2-5.4); RDW 14.8 % (11.5-14.5); WBC 9.82 X1000 (4.8-10.8)
[2018-12-27] MEDS: PERIDEX MT SCH ×2 (06:48→12:18)
[2018-12-27 06:57] LABS: AGAP 10; BUN 8 mg/dL (8-22); CALCIUM 7.9 mg/dL (8.8-10.2); CHLORIDE 102 mmol/L (98-107); COSMO 275; CREATININE 0.6 mg/dL (0.5-0.9); ESTIMATED GFR > 60; GLUCOSE 142 mg/dL (70-104); POTASSIUM 3.7 mmol/L (3.5-5.1); SODIUM 137 mmol/L (136-145); TCO2 25 mmol/L (25-35)
--- NOTE | 2018-12-27 11:45 | PROGRESS NOTE ---
DATE: 12/27/2018 SUBJECTIVE: Ms. Merary Isbell is now postop day 2 from exploratory laparotomy with lysis of adhesions, and resection of a small segment of small bowel. She is awake and appears to be mostly comfortable. Her abdomen is distended but not tightly so. She has had no bowel activity. She still has an NG tube in place. We will remove her Lazcano catheter tube this morning. OBJECTIVE: Her heart rate is 73, blood pressure 148/65, O2 saturation 97%. She is afebrile on no antibiotics. Her white blood cell count is normal. Hematocrit stable at 34%, and her electrolytes are within normal limits. PLAN: We will continue IV fluids. IV Tylenol, and morphine as needed. We will increase her activity. Discontinue her Lazcano catheter tube. Leave her NG tube for now. I have left the dressing on her midline incision thus far. cc: Daphne Naranjo MD
--- NOTE | 2018-12-27 11:50 | GASTROENTEROLOGY CONSULTATION ---
DATE: 12/27/2018 ATTENDING PHYSICIAN: Brysno Zaldivar MD PRIMARY DOCTOR: KEVYN Woods. REASON FOR CONSULTATION: Abdominal pain. HISTORY OF PRESENT ILLNESS: Ms. Isbell is a 73-year-old female who was admitted on 12/24/2018 for worsening abdominal pain. She was diagnosed with high-grade small bowel obstruction and uncomplicated diverticulosis coli. She was seen by Dr. Naranjo, who performed: 1. Right subclavian central venous line placement. 2. Exploratory laparotomy with extensive lysis of adhesions lasting at least 2 hours. 3. Resection of small bowel. Postoperatively, the patient has a NG tube in place. She has not passed any flatus. Her Lazcano was removed. According to the operative report in the records, the patient has extensive scar tissue buildup from abdominal wall mesh, which was placed many years ago. This was likely the reason for patient's multiple episodes of recurrent small bowel obstruction. The patient has had a colonoscopy done in 2018, will obtain the records. Reviewed EGD and colonoscopy reports from our office; EGD and colonoscopy from showed GERD, gastritis, Diverticulosis of left colon and 4 hyperplastic colon polyps in the left colon were noted. PAST MEDICAL HISTORY: Diverticulitis, fibromyalgia, hypothyroidism, GERD, hypertension, recurrent small bowel obstruction. PAST SURGICAL HISTORY: Cholecystectomy, hysterectomy, hernia repair with mesh, breast reduction, and recent surgery during admission with lysis of adhesions, small bowel resection, was high-grade small bowel obstruction. FAMILY HISTORY: Noncontributory. SOCIAL HISTORY: She lives with family. She smokes a pack of cigarettes a day. She drinks alcohol 2 times a week. No illicit drug abuse. Her family is present at bedside. ALLERGIES: Aspirin, hydrocodone, IV contrast, Toradol, Robaxin, Percocet, promethazine. MEDICATIONS IN THE HOSPITAL: Include Tylenol 1000 mg IV q.6 hours, chlorhexidine gluconate 15 mL twice daily, D5 half-normal 80 mL/hour, Lovenox 30 mg subcutaneously daily, Nexium 40 mg IV once daily, metoprolol 5 mg IV q.6 hours as needed, morphine 2 mg IV q.2 hours as needed, Zofran 4 mg IV q.6 hours as needed. The patient is currently n.p.o. by Dr. Naranjo. REVIEW OF SYSTEMS: Denies any current fever, rigors, chills, chest pain, or shortness of breath. She does complain of being uncomfortable with NG tube in place. She complains of mild abdominal discomfort which is from recent surgery. She has not passed any flatus. She does have evidence of diverticulosis and reflux disease. She denies any neurological complaints. PHYSICAL EXAMINATION: Vital Signs: Temperature of 98.9, pulse rate of 72, respiratory rate of 16, blood pressure 148/65, saturating 97% on room air. Body weight of 150 pounds, BMI 25.7 kg/m2. General: Moderately built, moderately nourished, lying in the bed, in no acute distress. HEENT: Mild pallor. No icterus. Pupils equal, reactive to light. NG tube was noted in place. Neck: Supple. Abdomen: Midline surgical dressing noted, no drainage noted. Abdomen is mildly protuberant and discomfort appropriately in the abdomen from recent surgery. No guarding. Extremities: No cyanosis or clubbing. Neurologic: She is alert, awake, oriented x3. LABORATORY: 1. Hemoglobin and hematocrit is 11.1 and 33.8, white count 9.82, platelet count of 204. Sodium of 137, potassium 3.7, chloride of 102, bicarb of 25, anion gap 10, BUN of 8, creatinine 0.6, glucose of 140, calcium of 7.9, AST 22, ALT 22, alkaline phosphatase 144, total protein is 9.7, albumin of 5.5, and this was on admission. 2. Urine culture showed mixed raymundo. IMPRESSION AND PLAN: 1. Small bowel obstruction secondary to previous surgery including abdominal hernia with mesh placement, which was likely the cause of extensive scar tissue causing recurrent bouts of small bowel obstruction and now currently admitted with high-grade small bowel obstruction requiring surgery with Dr. Naranjo. She is recovering from the surgery. Dr. Naranjo is on board. Continue management with General Surgery team. 2. Reflux. The patient is on Nexium IV once daily. This can transition to oral PPI for 3 months on discharge. 3. Diverticulosis. Once starting orals, the patient needs to avoid excessive corn, nuts, and seeds in diet. 4. The patient has history of chronic constipation in the past. She will benefit from taking MiraLAX once daily after discharge. 5. Deep venous thrombosis prophylaxis, Lovenox once daily. 6. The patient will follow up in the clinic in 3 months after discharge. We will available if needed. The above plan discussed with the patient and family at bedside and all questions were answered. Please all us with any further questions. cc: MD Paola Estrada CRNP Lynn R. Buckner, MD Manish Arora, MD MTDD
[2018-12-27] MEDS: SODIUM CHLORIDE 0.9% INJ SCH (15:33)
[2018-12-27] MEDS: NEXIUM IV SCH (15:34)
[2018-12-28] MEDS: D5 1/2 NS + KCL 20 MEQ 1,000 ML IV SCH ×3 (01:07→12:47)
[2018-12-28] MEDS: PERIDEX MT SCH ×4 (01:08→23:57)
[2018-12-28] MEDS: OFIRMEV 1000 MG/ISOTONIC SOLN 1,000 MG/100 ML BOTTLE IV SCH ×5 (01:08→23:52)
[2018-12-28] MEDS: MORPHINE IV PRN ×3 (01:09→23:47)
[2018-12-28] MEDS: LOVENOX SUBQ SCH (06:30)
--- NOTE | 2018-12-28 15:18 | PROGRESS NOTE ---
DATE: 12/28/2018 Ms. Merary Isbell is now postop day 4 from exploratory laparotomy for recurrent small-bowel obstruction. She has had some flatus and actually a bowel movement. Her abdomen remains mostly soft and therefore, we pulled her NG tube. She has been good about getting up in a chair. Her heart rate 64, blood pressure 146/95, O2 saturation 96%. She is afebrile on no antibiotics. We will leave her IV fluids going. I will just continue ice chips for now. We will slowly advance her diet over the weekend as tolerated. Her midline wound is healing well without evidence of infection. cc: Daphne Naranjo MD
[2018-12-28] MEDS: SODIUM CHLORIDE 0.9% INJ SCH (18:30)
[2018-12-28] MEDS: NEXIUM IV SCH (18:30)
--- NOTE | 2018-12-28 19:07 | PROGRESS NOTE ---
DATE: 12/28/2018 SUBJECTIVE: The patient denies having any acute complaints this morning. She does have some abdominal discomfort, but feels much better as compared to the previous days. OBJECTIVE: Vital signs: Temperature 97.7 degrees, pulse 64 per minute, respiratory rate 18 per minute, blood pressure 146/95, pulse oximetry 96% on room air.General: The patient is alert and oriented x3. She does not appear to be in any acute distress. Cardiovascular system: First and second heart sounds are audible without any murmurs or gallops. Respiratory system: Bilateral lung air entry is moderately decreased but there are no rales or rhonchi present. Gastrointestinal system: Abdomen is slightly distended but it is soft on palpation. It is slightly sore because of the surgical wound in the center, but no tenderness present otherwise. Bowel sounds are extremely hypoactive. LABORATORY DATA: No new lab data has been performed today. IMPRESSION: 1. Small-bowel obstruction, status post laparotomy and lysis of adhesions. 2. Gastroesophageal reflux disease. 3. Diverticulosis. 4. Generalized deconditioning. PLAN: The patient has been followed by Surgery and Gastroenterology at this time, who will primarily make the decision regarding the further actions since the patient is still having NG tube and has been kept NPO. She will continue with VTE prophylaxis with enoxaparin 30 mg subcutaneously every day and we will keep her on proton pump inhibitors intravenously. Pain management is also being provided to her with morphine sulfate on as-needed basis. She will need some physical therapy, that has already been provided to her. Further recommendations will be given as per hospital course. cc: Maria G Alvarez MD
[2018-12-29] MEDS: D5 1/2 NS + KCL 20 MEQ 1,000 ML IV SCH (03:30)
[2018-12-29] MEDS: LOVENOX SUBQ SCH (06:22)
[2018-12-29] MEDS: OFIRMEV 1000 MG/ISOTONIC SOLN 1,000 MG/100 ML BOTTLE IV SCH (06:23)
[2018-12-29 07:07] LABS: BASO# 0.02 X1000 (0.0-0.2); BASO% 0.3 % (0.0-0.8); EOS# 0.35 X1000 (0.0-0.7); HEMATOCRIT 31.5 % (37.0-47.0); HEMOGLOBIN 10.5 g/dL (12.0-16.0); IMM GRAN# 0.03 X1000 (0.0-0.04); IMM GRAN% 0.4 % (0.0-0.5); LYMPH% 18.5 % (20.5-51.1); MCH 28.8 PG (27-31); MCHC 33.3 g/dL (33-37); MCV 86.3 FL (81-99); MONO# 0.59 X1000 (0.11-0.59); MONO% 8.4 % (1.7-9.3); MPV 9.2 FL (7.4-10.4); NEUT# 4.74 X1000 (1.4-6.5); NEUT% 67.4 % (42.2-75.2); PLT 230 X1000 (130-400); RBC 3.65 XMIL (4.2-5.4); RDW 14.2 % (11.5-14.5); WBC 7.03 X1000 (4.8-10.8)
[2018-12-29 07:43] LABS: AGAP 11; BUN 8 mg/dL (8-22); CALCIUM 8.1 mg/dL (8.8-10.2); CHLORIDE 105 mmol/L (98-107); COSMO 279; CREATININE 0.5 mg/dL (0.5-0.9); ESTIMATED GFR > 60; GLUCOSE 124 mg/dL (70-104); POTASSIUM 3.5 mmol/L (3.5-5.1); SODIUM 140 mmol/L (136-145); TCO2 24 mmol/L (25-35)
[2018-12-29 08:03] LABS: MAGNESIUM 1.5 mg/dL (1.5-2.7); PHOSPHORUS 2.9 mg/dL (2.7-4.5)
[2018-12-29] MEDS: PERIDEX MT SCH ×2 (09:39→22:25)
[2018-12-29] MEDS ORDERED: MAGNESIUM SULFATE 2 GM/S.W.I. 2 GM/50 ML IVPB IV ONE (11:27)
[2018-12-29] MEDS ORDERED: LOPRESSOR PO ONE (11:32)
[2018-12-29] MEDS: NORCO-10 PO PRN ×2 (11:49→22:25)
[2018-12-29] MEDS: SYNTHROID PO SCH (11:49)
[2018-12-29] MEDS ORDERED: NS 500 ML ONE (12:51)
--- NOTE | 2018-12-29 21:47 | PROGRESS NOTE ---
DATE: 12/29/2018 SUBJECTIVE: The patient is resting comfortably. She has been having bowel movements. OBJECTIVE: Vital signs: Temperature 98.6 degrees, blood pressure 155/70, heart rate 63, respirations 16, O2 saturation is 95% on room air. General: This is an elderly female, sitting up in bed in no acute distress. Heart: S1, S2 normal. Regular rate and rhythm. Lungs: Equal air entry bilaterally. No wheezing. No rales. Abdomen: Positive bowel sounds. Soft, nontender, nondistended. Extremities: No edema. No cyanosis. Neurologic: The patient is alert and oriented x4. LABORATORY: Reviewed. ASSESSMENT AND PLAN: 1. Status post exploratory laparotomy with lysis of adhesions and small-bowel resection secondary to a small bowel obstruction. Management as per the general surgeon. 2. Hypothyroidism. We will restart the patient's Synthroid. 3. Hypertension. Continue on Lopressor and Norvasc. 4. Deep vein thrombosis prophylaxis. Continue on Lovenox. 5. Continue with physical therapy. cc: MD DONALD Jang
[2018-12-29] MEDS: LOPRESSOR PO SCH (22:25)
[2018-12-30] MEDS: LOVENOX SUBQ SCH ×2 (04:49→08:19)
[2018-12-30] MEDS: SYNTHROID PO SCH ×2 (04:49→08:19)
[2018-12-30] MEDS: NORCO-10 PO PRN ×3 (04:52→20:42)
[2018-12-30 07:24] LABS: HEMATOCRIT 34.6 % (37.0-47.0); HEMOGLOBIN 11.5 g/dL (12.0-16.0); MCH 29.2 PG (27-31); MCHC 33.2 g/dL (33-37); MCV 87.8 FL (81-99); MPV 9.3 FL (7.4-10.4); RBC 3.94 XMIL (4.2-5.4); RDW 14.2 % (11.5-14.5); WBC 7.45 X1000 (4.8-10.8)
[2018-12-30 08:04] LABS: AGAP 13; BUN 6 mg/dL (8-22); CHLORIDE 103 mmol/L (98-107); COSMO 278; CREATININE 0.6 mg/dL (0.5-0.9); ESTIMATED GFR > 60; GLUCOSE 124 mg/dL (70-104); MAGNESIUM 1.9 mg/dL (1.5-2.7); POTASSIUM 3.6 mmol/L (3.5-5.1); SODIUM 140 mmol/L (136-145); TCO2 24 mmol/L (25-35)
[2018-12-30] MEDS: LOPRESSOR PO SCH ×2 (08:53→20:43)
[2018-12-30] MEDS: NORVASC PO SCH (08:53)
[2018-12-30] MEDS: PERIDEX MT SCH ×2 (08:53→20:43)
--- NOTE | 2018-12-30 09:40 | PROGRESS NOTE ---
DATE: 12/30/2018 SUBJECTIVE: Ms. Merary Isbell is now postop day 6 from lysis of adhesions and resection of a segment of small bowel. She is sitting up in a chair. She has had some bowel activity. Although she had some stomach pain overnight, she seems to be tolerating her full liquid diet, and will advance her to a regular diet. Her midline incision is healing well. Her abdomen is mostly soft. She has been good about moving around in her room. Her heart rate is 64, blood pressure 146/45, O2 saturation 97%, she is afebrile. She is on no antibiotics. She is taking mostly p.o. medicines. PLAN: If she continues to improve, will look for discharge under the care of her family. cc: Daphne Naranjo MD
--- NOTE | 2018-12-30 19:12 | PROGRESS NOTE ---
DATE: 12/30/2018 SUBJECTIVE: The patient is resting comfortably. She is sitting up in the chair and had eaten and had a bowel movement already today. OBJECTIVE: Vital Signs: Temperature 97.8 degrees blood pressure 139/68, heart rate 65, respirations 16, O2 saturation is 100% on room air. General: This is an elderly female, sitting in a chair in no acute distress. Heart: S1, S2 normal with regular rate and rhythm. Lungs: Equal air entry bilaterally. No wheezing. No rales. No rhonchi. Abdomen: Positive bowel sounds. Soft, nontender, nondistended. Extremities: No edema, no cyanosis. Neurologic: The patient is alert and oriented x4. LABORATORY DATA: White blood cell count 7.4, hemoglobin 11, hematocrit 34, platelets 259,000. Sodium 140, potassium 3.6, chloride 103, CO2 of 24, BUN 6, creatinine 0.6, glucose 124. ASSESSMENT AND PLAN: 1. Status post exploratory laparotomy with lysis of adhesions and small bowel resection secondary to small bowel obstruction. Improved. General Surgery is following. 2. Hypertension. Controlled. 3. Hypothyroidism. Continue on Synthroid. 4. Deep vein thrombosis prophylaxis. Continue on Lovenox. DISPOSITION: Discharge once cleared by the general surgeon. cc: Mirela Mireles MD
[2018-12-31] MEDS: LOVENOX SUBQ SCH (06:24)
[2018-12-31] MEDS: SYNTHROID PO SCH (06:24)
[2018-12-31] MEDS: NORVASC PO SCH (09:44)
[2018-12-31] MEDS: LOPRESSOR PO SCH (09:44)
[2018-12-31] MEDS: PERIDEX MT SCH (09:45)
[2018-12-31] MEDS: NORCO-10 PO PRN (12:39)
[2018-12-31 16:21] VITALS: BP 124/58
--- NOTE | 2019-01-01 11:24 | DISCHARGE SUMMARY ---
ADMISSION DATE: 12/24/2018 DISCHARGE DATE: 12/31/2018 ADMITTING DIAGNOSIS: Recurrent small-bowel obstruction, status post abdominal surgery. POSTOPERATIVE DIAGNOSIS: Recurrent small-bowel obstruction, status post abdominal surgery. PRINCIPAL PROCEDURE: Exploratory laparotomy with lysis of adhesions and resection of a small segment of small bowel on 12/25/2018. DISCHARGE DIET: Regular. DISCHARGE DISPOSITION: She will return to our outpatient offices in 7 to 10 days for followup. DISCHARGE DISABILITY: Full. DISCHARGE MEDICATIONS: She is to return to her home medications. HOSPITAL COURSE: Ms. Merary Isbell is a 73-year-old white female who has had multiple episodes of small-bowel obstruction. We have treated these conservatively in the past, and she has gotten well with NG suction and IV fluids, but even when she is not hospitalized, she has intermittent abdominal cramping, and it has affected her lifestyle. She was admitted through our emergency department again with small-bowel obstruction, which was proven by abdominal CT scan, and it was felt that we should take her to surgery to prevent this recurrent small-bowel obstruction. At the time of surgery, she had intra-abdominal mesh from previous midline hernia, and the scarring intra- abdominally was significant. We took down all adhesions between loops of small bowel, and off the mesh. There was an area of chronic stricture in a small segment of small bowel, and we resected this stricture and performed an end-to-end double-layer sewn anastomosis. We closed the midline fascia and the mesh with nonabsorbable Prolene, and then after surgery, she went to the recovery room and then to the [address] [place] [address] [place], where we felt that her postoperative convalescence was essentially normal. We did expect a prolonged ileus from all the dissection. Initially after surgery, she had an NG tube and Lazcano catheter tube. We removed the Lazcano catheter tube within 48 hours. The following day, we removed the NG tube, and we slowly introduce a diet, so at the time of discharge, she was tolerating a regular diet. She was having bowel activity. Her midline incision was healing without infection, and she was ambulating well in the agrcia and in her room. It was felt safe to discharge her home under the care of her family, with followup in our outpatient offices. At discharge, her heart rate was 58 to 72, blood pressure 121/60, O2 saturation 98%. She was afebrile. She knows to contact me with any increasing abdominal distention, pain, fever, nausea, or vomiting. cc: MD Paola Elizondo CRNP
== END 2018-12-31 16:25 | disposition home or self-care (01) | DRG 330 ==
LOC: ED 07:01 → 4N 10:45 → SUATTDRO 10:45
PROVIDERS: ATTEND Internal Medicine